=== PATIENT | female | born 1990 | race Two or more races ===

== ENCOUNTER → 2020-10-27 15:03 | Outpatient (BNVA) | payer OTHER, SELFPAY | PROVIDERS: Visit Provider Nurse Practitioner Family | DX: J02.0 Streptococcal pharyngitis (principal) | CPT/HCPCS: 87880 ==

== ENCOUNTER → 2021-08-25 10:24 | Outpatient (BNVA) | payer MEDICAID, SELFPAY | PROVIDERS: Visit Provider Obstetrics & Gynecology | DX: Z12.4 Encounter for screening for malignant neoplasm of cervix (principal); N89.8 Other specified noninflammatory disorders of vagina | CPT/HCPCS: 87491; 87591; 87624; 87661 ==

== ENCOUNTER → 2021-09-08 15:45 | Outpatient (BNVA) | payer MEDICAID, SELFPAY | PROVIDERS: Visit Provider Obstetrics & Gynecology | DX: Z30.46 Encounter for surveillance of implantable subdermal contraceptive (principal); N90.89 Other specified noninflammatory disorders of vulva and perineum | CPT/HCPCS: 81025; 88305 ==

== ENCOUNTER → 2022-12-11 12:03 | Outpatient (BNVA) | payer MEDICAID, SELFPAY | PROVIDERS: PCP Family Medicine; Visit Provider Family Medicine | DX: Z91.09 Other allergy status, other than to drugs and biological substances (principal) | CPT/HCPCS: 80053; 84439; 84443; 85025 ==

== ENCOUNTER 2023-11-28 21:39 | Emergency (ER) | payer OTHER, SELFPAY ==
--- NOTE | 2023-11-28 21:50 | XRR_ITS ---
PROCEDURE INFORMATION: Exam: XR Chest Exam date and time: 11/28/2023 10:05 PM Age: 33 years old Clinical indication: Cough and fever and shortness of breath; Patient HX: Cough with SOB and fever; Additional info: Cough, fever TECHNIQUE: Imaging protocol: Radiologic exam of the chest. Views: 1 view. COMPARISON: No relevant prior studies available. FINDINGS: Lungs: Unremarkable. No consolidation. Pleural spaces: Unremarkable. No pleural effusion. No pneumothorax. Heart/Mediastinum: Unremarkable. No cardiomegaly. Bones/joints: Unremarkable. XR/XR chest 1V portable [id number] IMPRESSION: No acute findings.
[2023-11-28 21:53] VITALS: BP 133/85; PULSE 126; RESP 19; TEMP 37.5; O2SAT 100; BMI 21.0
--- NOTE | 2023-11-28 22:13 | PC.NURSE ---
Patient refused flu/ covid swabs. provider has been notified.
--- NOTE | 2023-11-28 22:14 | ED_ITS ---
Documented by User: DIANDRA Saldana 11/29/23 00:00 HPI - Fever 2 General: Chief Complaint: Fever Stated Complaint: fever chills pain with breathing Time Seen by Provider: 11/28/23 21:50 History of Present Illness: 33-year-old female comes in with right q uadrant pain and low back pain. Patient reports fever. Patient refused COVID and flu swab believing that she is not ill with those. Patient has been smoking marijuana. Patient smokes tobacco. Patient denies any other medical problems chronic or otherwise. Review of Systems 2 General: Reports: 10 or more systems reviewed and unremarkable except in HPI and below Const: Reports: fever(s) Musc: Reports: back pain PFSH ED 2 PFSH: Medical History (Updated 11/28/23 @ 23:54 by DIANDRA Saldana) Cataracts, bilateral Asthma Conjunctivitis URI with cough and congestion Surgical History H/O section S/P tonsillectomy and adenoidectomy Family History (Updated 12/11/22 @ 11:28 by Renae Nunez LPN) Family/Other Diabetes maternal aunt Hypertension maternal aunt Breast cancer maternal aunts x2 in their 30's paternal aunt x1, uncertain age Mother Hypertension Sister Stroke Thyroid disease Heart disease Cancer brain Denies family history of Colon cancer Ovarian cancer CAD (coronary artery disease) Clotting disorder Dementia Hyperlipidemia Psychiatric illness Chronic kidney disease (CKD) Anesthesia complication Bleeding disorder Lung disease Uterine cancer Social History (Updated 12/11/22 @ 11:40 by Ronny Kimble MD) Smoking and tobacco/nicotine status: current every day tobacco/nicotine user cigarettes Packs smoked per day: 0.5 [ Other cigarette details: 1/2PPD, x 14yrs] Alcohol intake: current Alcohol intake frequency: few times a month Alcohol type: hard liquor Substance/Drug Use: current Substance/Drug use frequency: daily Other substance/drug use details: MJ daily. 2 bowls/day. Hx of meth, heroin, sober x 1yr Lives independently: No Marital status: Single Number of children: 2 service: No Current occupational status: unemployed and student Current gender identity: Female Special thierry needs: No Agree to transfusion: Yes Physical Exam 2 Const: COMMON NORMALS: alert HENMT: COMMON NORMALS: normocephalic HEAD & SCALP: normocephalic Neck/C-Spine: COMMON NORMALS: full ROM Resp: COMMON NORMALS: normal respiratory effort and clear to auscultation bilaterally AUSCULTATION: clear to auscultation bilaterally Cardio: COMMON NORMALS: regular rate and regular rhythm RATE: regular rate RHYTHM: regular rhythm : BLADDER/KIDNEY EXAM: Yes CVA tenderness on the right Back/Pelvis: COMMON NORMALS: thoracic and lumbar spine normal to inspection GENERAL BACK: Yes CVA tenderness Extremity: COMMON NORMALS: normal to inspection Neuro: SENSORIUM/ORIENTATION: Yes alert Skin: COMMON NORMALS: turgor normal GENERAL SKIN EXAM: turgor normal Course 2 Vital Signs: Vital signs: Vital Signs Temperature 99.5 F 11/28/23 21:53 Pulse Rate 108 H 11/29/23 00:15 Respiratory Rate 16 11/29/23 00:15 Blood Pressure 145/87 11/28/23 22:15 Pulse Oximetry 98 11/29/23 00:15 Oxygen Delivery Me thod Room Air 11/28/23 22:15 MDM - Fever Medical Decision Making 33-year-old female comes in today for complaints of right flank pain and right lower abdominal pain. Patient appears mildly unwell but not toxic. On exam patient was positive for CVA tenderness on the right. Lower abdominal tenderness. Vital signs are stable except for elevated pulse in the 120s. Differential diagnosis includes but not limited to constipation, appendicitis, renal calculi, urinary tract infection. Patient positive nitrates and white blood cells in the urine. CMP had a sodium 135 and potassium of 3.3. CBC had a white blood cell count of 11,000. CT of the abdomen pelvis noted no renal calculi and only moderate constipation no other inflammatory process. Believe the patient probably has a urinary tract infection secondary constipation. Will treat for UTI with ceftriaxone and cephalexin. Patient was given some fluids and Toradol for pain. Patient was recommended to follow-up with primary care return to ED for new concerns. Lab Data 11/28/23 22:27 11/28/23 22:27 Radiology Impressions Chest X-Ray 11/28/23 21:50 IMPRESSION: No acute findings. Abdomen/Pelvis CT 11/28/23 23:21 IMPRESSION: 1. Negative for acute inflammatory process in the abdomen or pelvis. 2. Mild bilateral medullary nephrocalcinosis, typically a chronic benign finding. 3. Trace nonspecific fluid in the pelvis. 4. Moderate constipation. Laboratory Results WBC 11.05 10^3/uL (3.29-11.43) 11/28/23: RBC 4.13 10^6/uL (3.85-5.65) 11/28/23: Hgb 11.90 g/dL (11.27-16.99) 11/28/23: Hct 34.9 % (36-47) L 11/28/23: MCV 84.5 fl (85-98) L 11/28/23: MCH 28.8 pg (27-33) 11/28/23: MCHC 34.1 g/dL (30-55) 11/28/23: RDW 12.8 % (12.1-15.1) 11/28/23: Plt Count 231 10^3/cmm (157-399) 11/28/23: MPV 8.8 fL (7.4-10.4) 11/28/23: Neut % (Auto) 73.5 % 11/28/23: Lymph % (Auto) 13.7 % 11/28/23: Crowley % (Auto) 11.9 % 11/28/23: Eos % (Auto) 0.2 % 11/28/23: Baso % (Auto) 0.2 % 11/28/23: Neut # (Auto) 8.13 10^3/uL (1.8-7.7) H 11/28/23: Lymph # (Auto) 1.5 10^3/uL (0.8-4.8) 11/28/23: Crowley # (Auto) 1.3 10^3/uL (0.2-0.9) H 11/28/23: Eos # (Auto) 0.0 10^3/uL (0.0-0.8) 11/28/23: Baso # (Auto) 0.0 10^3/uL (0.0-0.1) 11/28/23: Nucleated RBC % (auto) 0 % 02/11/24 22:27 Nucleated RBCs # 0.0 /100WBC 11/28/23 22: Sodium 135 mmol/L (136-145) L 11/28/23 22:27 Potassium 3.3 mmol/L (3.5-5.1) L 11/28/23 22: Chloride 103 mmol/L (98-107) 11/28/23 22: Carbon Dioxide 21 mmol/L (22-29) L 11/28/23: Anion Gap 14.3 (5-19) 11/28/23 22: BUN 9 mg/dL (6-20) 11/28/23 22: Creatinine 0.4 mg/dL (0.5-0.9) L 11/28/23 22: GFR Calculation 181.6 mL/min (90-130) H 11/28/23: Glucose 89 mg/dL (65-115) 11/28/23: Calculated Osmolality 278 mOsm/kg (285-295) L 11/28/23: Calcium 8.2 mg/dL (8.5-10.5) L 11/28/23 22: Total Bilirubin 0.4 mg/dL (0.15-1.2) 11/28/23 22: AST 52 U/L (0-32) H 11/28/23 22: ALT 55 U/L (0-33) H 11/28/23 22: Alkaline Phosphatase 90 U/L (35-105) 11/28/23: Total Protein 6.6 g/dL (6.6-8.7) 11/28/23: Albumin 3.5 g/dL (3.5-5.2) 11/28/23 22: Globulin 3.1 g/dL (1.3-4.6) 11/28/23: Lipase 22 U/L (13-60) 11/28/23: HCG, Qual Negative (Negative) 11/28/23: Urine Color Yellow (Yellow) 11/28/23 22: Urine Appearance Sl hazy (CLEAR) A 11/28/23: Urine pH 5 (5-7) 11/28/23: Ur Specific [place] 1.020 (1.005-1.030) 02/11/24 22:29 Urine Protein Neg (Negative) 11/28/23 22:29 Urine Glucose (UA) Norm (Normal) 11/28/23 22:29 Urine Ketones 1+ (Negative) H 11/28/23 22: Urine Blood 3+ (Negative) H 11/28/23 22:29 Urine Nitrate Positive (Negative) H 11/28/23 22:29 Urine Bilirubin Neg (Negative) 11/28/23 22:29 Urine Urobilinogen 1 mg/dL (Negative) H 11/28/23 22:29 Ur Leukocyte Esterase 1+ (Negative) H 11/28/23 22:29 Urine RBC 5-10 /hpf (0-2) H 11/28/23 22:29 Urine WBC 15-25 /hpf (0-5) H 11/28/23 22: Ur Squamous Epith Cells 0-4 /hpf (0-5) H 11/28/23 22:29 Amorphous Sediment Not Reportable 11/28/23 22: Urine Bacteria 2+ /hpf (NONE) H 11/28/23 22:29 All radiology interpretation(s) finalized by discharge Discharge Plan Discharge Patient Disposition: Home Clinical Impression: UTI (urinary tract infection) due to Enterococcus Constipation Qualifiers: Constipation type: unspecified constipation type Qualified Code(s): K59.00 - Constipation, unspecified Condition: Stable Prescriptions: New cephalexin 500 mg capsule 500 mg PO BID 7 Days Qty: 14 0RF No Action iVizia (PF) 0.5 % drops ophthalmic (eye) DAILY PRN budesonide-formoterol [Symbicort] 80-4.5 mcg/actuation HFA aerosol inhaler 2 puff inhalation BID Qty: 10.2 1RF polymyxin B sulf-trimethoprim 10,000 unit- 1 mg/mL drops 1 drp ophthalmic (eye) Q3H 7 Days Qty: 10 0RF Rx Instructions: while awake; do not exceed 6 doses in 24 hours Discharge Orders: Discharge ED (Routine); Ordered 11/28/23 Ordered By: Juan Snowden Referrals: Ronny Kimble MD [Primary Care Provider] - Discharge Diet: Usual diet Discharge Activity: Increase activity as tolerated Patient Instructions: Urinary Tract Infection in Women (ED) Activity Restrictions/Additional Instructions: Home and rest. Drink plenty water and fluids. Use acetaminophen and/or ibuprofen to help with pain. Take antibiotics as directed. Follow-up with primary care for further instructions. Return to ED for new concerns. 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[employer] Documented by User: Mat Cage, 11/29/23 05:47 HPI - Fever 2 General: Chief Complaint: Fever Stated Complaint: fever chills pain with breathing Time Seen by Provider: 11/28/23 21:50 PFSH ED 2 PFSH: Medical History (Updated 11/28/23 @ 23:54 by DIANDRA Saldana) Cataracts, bilateral Asthma Conjunctivitis URI with cough and congestion Surgical History H/O section S/P tonsillectomy and adenoidectomy Family History (Updated 12/11/22 @ 11:28 by Renae Nunez LPN) Family/Other Diabetes maternal aunt Hypertension maternal aunt Breast cancer maternal aunts x2 in their 30's paternal aunt x1, uncertain age Mother Hypertension Sister Stroke Thyroid disease Heart disease Cancer brain Denies family history of Colon cancer Ovarian cancer CAD (coronary artery disease) Clotting disorder Dementia Hyperlipidemia Psychiatric illness Chronic kidney disease (CKD) Anesthesia complication Bleeding disorder Lung disease Uterine cancer Social History (Updated 12/11/22 @ 11:40 by Ronny Kimble MD) Smoking and tobacco/nicotine status: current every day tobacco/nicotine user cigarettes Packs smoked per day: 0.5 [ Other cigarette details: 1/2PPD, x 14yrs] Alcohol intake: current Alcohol intake frequency: few times a month Alcohol type: hard liquor Substance/Drug Use: current Substance/Drug use frequency: daily Other substance/drug use details: MJ daily. 2 bowls/day. Hx of meth, heroin, sober x 1yr Lives independently: No Marital status: Single Number of children: 2 service: No Current occupational status: unemployed and student Current gender identity: Female Special thierry needs: No Agree to transfusion: Yes Course 2 Vital Signs: Vital signs: Vital Signs Temperature 99.5 F 11/28/23 21:53 Pulse Rate 108 H 11/29/23 00:15 Respiratory Rate 16 11/29/23 00:15 Blood Pressure 145/87 11/28/23 22:15 Pulse Oximetry 98 11/29/23 00:15 Oxygen Delivery Me thod Room Air 11/28/23 22:15 MDM - Fever Medical Decision Making 33-year-old female comes in today for complaints of right flank pain and right lower abdominal pain. Patient appears mildly unwell but not toxic. On exam patient was positive for CVA tenderness on the right. Lower abdominal tenderness. Vital signs are stable except for elevated pulse in the 120s. Differential diagnosis includes but not limited to constipation, appendicitis, renal calculi, urinary tract infection. Patient positive nitrates and white blood cells in the urine. CMP had a sodium 135 and potassium of 3.3. CBC had a white blood cell count of 11,000. CT of the abdomen pelvis noted no renal calculi and only moderate constipation no other inflammatory process. Believe the patient probably has a urinary tract infection secondary constipation. Will treat for UTI with ceftriaxone and cephalexin. Patient was given some fluids and Toradol for pain. Patient was recommended to follow-up with primary care return to ED for new concerns. This patient was originally seen by DIANDRA Aldrich.? I agree with his history, evaluation, and treatment. Lab Data 11/28/23 22:27 11/28/23 22:27 Radiology Impressions Chest X-Ray 11/28/23 21:50 IMPRESSION: No acute findings. Abdomen/Pelvis CT 11/28/23 23:21 IMPRESSION: 1. Negative for acute inflammatory process in the abdomen or pelvis. 2. Mild bilateral medullary nephrocalcinosis, typically a chronic benign finding. 3. Trace nonspecific fluid in the pelvis. 4. Moderate constipation. Laboratory Results WBC 11.05 10^3/uL (3.29-11.43) 11/28/23: RBC 4.13 10^6/uL (3.85-5.65) 11/28/23 22: Hgb 11.90 g/dL (11.27-16.99) 11/28/23: Hct 34.9 % (36-47) L 11/28/23: MCV 84.5 fl (85-98) L 11/28/23: MCH 28.8 pg (27-33) 11/28/23: MCHC 34.1 g/dL (30-55) 11/28/23: RDW 12.8 % (12.1-15.1) 11/28/23: Plt Count 231 10^3/cmm (157-399) 11/28/23: MPV 8.8 fL (7.4-10.4) 11/28/23: Neut % (Auto) 73.5 % 11/28/23: Lymph % (Auto) 13.7 % 11/28/23: Crowley % (Auto) 11.9 % 11/28/23: Eos % (Auto) 0.2 % 11/28/23: Baso % (Auto) 0.2 % 11/28/23: Neut # (Auto) 8.13 10^3/uL (1.8-7.7) H 11/28/23: Lymph # (Auto) 1.5 10^3/uL (0.8-4.8) 11/28/23: [place]ley # (Auto) 1.3 10^3/uL (0.2-0.9) H 11/28/23: Eos # (Auto) 0.0 10^3/uL (0.0-0.8) 11/28/23: Baso # (Auto) 0.0 10^3/uL (0.0-0.1) 11/28/23: Nucleated RBC % (auto) 0 % 11/28/23: Nucleated RBCs # 0.0 /100WBC 11/28/23: Sodium 135 mmol/L (136-145) L 11/28/23: Potassium 3.3 mmol/L (3.5-5.1) L 11/28/23: Chloride 103 mmol/L (98-107) 11/28/23: Carbon Dioxide 21 mmol/L (22-29) L 11/28/23: Anion Gap 14.3 (5-19) 11/28/23: BUN 9 mg/dL (6-20) 11/28/23: Creatinine 0.4 mg/dL (0.5-0.9) L 11/28/23: GFR Calculation 181.6 mL/min (90-130) H 11/28/23: Glucose 89 mg/dL (65-115) 11/28/23: Calculated Osmolality 278 mOsm/kg (285-295) L 11/28/23: Calcium 8.2 mg/dL (8.5-10.5) L 11/28/23: Total Bilirubin 0.4 mg/dL (0.15-1.2) 11/28/23: AST 52 U/L (0-32) H 11/28/23: ALT 55 U/L (0-33) H 11/28/23: Alkaline Phosphatase 90 U/L (35-105) 11/28/23: Total Protein 6.6 g/dL (6.6-8.7) 11/28/23: Albumin 3.5 g/dL (3.5-5.2) 11/28/23: Globulin 3.1 g/dL (1.3-4.6) 11/28/23: Lipase 22 U/L (13-60) 11/28/23: HCG, Qual Negative (Negative) 11/28/23: Urine Color Yellow (Yellow) 11/28/23: Urine Appearance Sl hazy (CLEAR) A 11/28/23: Urine pH 5 (5-7) 11/28/23: Ur Specific [place] 1.020 (1.005-1.030) 11/28/23: Urine Protein Neg (Negative) 11/28/23: Urine Glucose (UA) Norm (Normal) 11/28/23: Urine Ketones 1+ (Negative) H 11/28/23: Urine Blood 3+ (Negative) H 11/28/23: Urine Nitrate Positive (Negative) H 11/28/23: Urine Bilirubin Neg (Negative) 11/28/23: Urine Urobilinogen 1 mg/dL (Negative) H 11/28/23: Ur Leukocyte Esterase 1+ (Negative) H 11/28/23 22:29 Urine RBC 5-10 /hpf (0-2) H 11/28/23 22:29 Urine WBC 15-25 /hpf (0-5) H 11/28/23 22:29 Ur Squamous Epith Cells 0-4 /hpf (0-5) H 11/28/23 22:29 Amorphous Sediment Not Reportable 11/28/23 22:29 Urine Bacteria 2+ /hpf (NONE) H 11/28/23 22:29 Discharge Plan Discharge Patient Disposition: Home Clinical Impression: UTI (urinary tract infection) due to Enterococcus Constipation Qualifiers: Constipation type: unspecified constipation type Qualified Code(s): K59.00 - Constipation, unspecified Condition: Stable Prescriptions: New cephalexin 500 mg capsule 500 mg PO BID 7 Days Qty: 14 0RF No Action iVizia (PF) 0.5 % drops ophthalmic (eye) DAILY PRN budesonide-formoterol [Symbicort] 80-4.5 mcg/actuation HFA aerosol inhaler 2 puff inhalation BID Qty: 10.2 1RF polymyxin B sulf-trimethoprim 10,000 unit- 1 mg/mL drops 1 drp ophthalmic (eye) Q3H 7 Days Qty: 10 0RF Rx Instructions: while awake; do not exceed 6 doses in 24 hours Discharge Orders: Discharge ED (Routine); Ordered 11/28/23 Ordered By: Juan Snowden Referrals: Ronny Kimble MD [Primary Care Provider] - Discharge Diet: Usual diet Discharge Activity: Increase activity as tolerated Patient Instructions: Urinary Tract Infection in Women (ED) Activity Restrictions/Additional Instructions: Home and rest. Drink plenty water and fluids. Use acetaminophen and/or ibuprofen to help with pain. Take antibiotics as directed. Follow-up with primary care for further instructions. Return to ED for new concerns. 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
[2023-11-28 22:15] VITALS: BP 145/87; PULSE 129; O2SAT 98
[2023-11-28 22:33] LABS: Basophils % 0.2 %; Eosinophils % 0.2 %; Hematocrit 34.9 % (36-47); Lymphocytes # 1.5 10^3/uL (0.8-4.8); Lymphocytes % 13.7 %; Mean Corpuscular HGB Conc 34.1 g/dL (30-55); Mean Corpuscular Hemoglobin 28.8 pg (27-33); Mean Corpuscular Volume 84.5 fl (85-98); Mean Platelet Volume 8.8 fL (7.4-10.4); Monocytes # 1.3 10^3/uL (0.2-0.9); Monocytes % 11.9 %; Neutrophils # 8.13 10^3/uL (1.8-7.7); Neutrophils % 73.5 %; Nucleated Red Blood Cells % 0 %; Platelet Count 231 10^3/cmm (157-399); Red Blood Count 4.13 10^6/uL (3.85-5.65); Red Cell Distribution Width 12.8 % (12.1-15.1); White Blood Count 11.05 10^3/uL (3.29-11.43)
[2023-11-28 22:58] LABS: Add Urine Microscopic? YES; Bilirubin Urine Neg (Negative); Blood Urine 3+ (Negative); Glucose Urine UA Norm (Normal); Ketones Urine 1+ (Negative); Leukocyte Esterase Urine 1+ (Negative); Nitrate Urine Positive (Negative); Protein Urine Neg (Negative); Urine Appearance SL Hazy (CLEAR); Urine Color Yellow (Yellow); Urobilinogen Urine 1 mg/dL (Negative); pH Urine 5 (5-7)
[2023-11-28 22:59] LABS: Add Urine Culture? Yes; Bacteria Urine 2+ /hpf; Squamous Epithelial Cell Urine 0-4 /hpf (0-5); WBC Urine 15-25 /hpf (0-5)
[2023-11-28 22:59] LABS: Alanine Aminotransferase 55 U/L (0-33); Albumin Level 3.5 g/dL (3.5-5.2); Alkaline Phosphatase 90 U/L (35-105); Anion Gap 14.3 (5-19); Aspartate Amino Transferase 52 U/L (0-32); Blood Urea Nitrogen 9 mg/dL (6-20); Calcium 8.2 mg/dL (8.5-10.5); Carbon Dioxide 21 mmol/L (22-29); Chloride 103 mmol/L (98-107); Globulin 3.1 g/dL (1.3-4.6); Glomerular Filtration Rate 181.6 mL/min (90-130); Glucose 89 mg/dL (65-115); Lipase 22 U/L (13-60); Osmolality Calculated 278 mOsm/kg (285-295); Potassium 3.3 mmol/L (3.5-5.1); Sodium 135 mmol/L (136-145); Total Bilirubin 0.4 mg/dL (0.15-1.2); Total Protein 6.6 g/dL (6.6-8.7)
[2023-11-28 23:05] LABS: HCG, Serum Qual Negative (Negative)
--- NOTE | 2023-11-28 23:21 | CTR_ITS ---
PROCEDURE INFORMATION: Exam: CT Abdomen And Pelvis Without Contrast Exam date and time: 11/28/2023 11:27 PM Age: 33 years old Clinical indication: Abdominal pain; Right; Prior surgery; Surgery date: 6+ months; Surgery type: Csection; Patient HX: RT flank pain with hematuria; Additional info: Right flank pain TECHNIQUE: Imaging protocol: Computed tomography of the abdomen and pelvis without contrast. Radiation optimization: All CT scans at this facility use at least one of these dose optimization techniques: automated exposure control; mA and/or kV adjustment per patient size (includes targeted exams where dose is matched to clinical indication); or iterative reconstruction. COMPARISON: US OB lm w fetalBPP woNST umb 09/10/2017 12:58 PM RADIATION DOSE METRICS: Total DLP (mGy-cm): 294.86 FINDINGS: Liver: Normal. No mass. Gallbladder and bile ducts: Normal. No calcified stones. No ductal dilation. Pancreas: Normal. No ductal dilation. Spleen: Normal. No splenomegaly. Adrenal glands: Normal. No mass. Kidneys and ureters: Mild bilateral medullary nephrocalcinosis, typically a chronic benign finding. Stomach and bowel: Moderate constipation. Appendix: No evidence of appendicitis. Intraperitoneal space: Unremarkable. No free air. No significant fluid collection. Vasculature: Unremarkable. No abdominal aortic aneurysm. Lymph nodes: Unremarkable. No enlarged lymph nodes. Urinary bladder: Unremarkable as visualized. Reproductive: Unremarkable as visualized. Bones/joints: Unremarkable. No acute fracture. Soft tissues: Unremarkable. Other findings: Trace nonspecific fluid in the pelvis. CT/CT kidney stone [id number] IMPRESSION: 1. Negative for acute inflammatory process in the abdomen or pelvis. 2. Mild bilateral medullary nephrocalcinosis, typically a chronic benign finding. 3. Trace nonspecific fluid in the pelvis. 4. Moderate constipation.
[2023-11-29] MEDS: ketorolac 30 mg/mL INJ 15 MG IVP (00:02)
[2023-11-29] MEDS: cefTRIAXone 1,000 MG in sodium chloride 0.9% (plus) 50 ML 100 MG IV (00:04)
[2023-11-29 00:15] VITALS: PULSE 108; RESP 16; O2SAT 98
== END 2023-11-29 00:17 | disposition home or self-care (01) ==
PROVIDERS: Emergency Provider Nurse Practitioner Family; PCP Family Medicine
DX: K59.00 Constipation, unspecified (principal); N39.0 Urinary tract infection, site not specified; B95.2 Enterococcus as the cause of diseases classified elsewhere; F17.210 Nicotine dependence, cigarettes, uncomplicated
CPT/HCPCS: 71045; 74176; 80053; 81001; 83690; 84703; 85025; 87077; 87086; 87186; 96374; 96375; 99285; J0696; J1885